=== PATIENT | male | born 1930 | race Caucasian/White ===

== ENCOUNTER → 2018-04-02 | Outpatient (CLI) | payer MEDICARE, BC ==
--- NOTE | 2018-04-03 08:50 | Diagnostic Imaging Report ---
PROCEDURE: X-RAY MODIFIED BARIUM SWALLOW COMPARISON: None. INDICATION: Pharyngeal dysphagia Radiation Details: Fluoroscopy time: 4.2 minutes Cumulative air kerma: 22.3 mGy DISCUSSION: Fluoroscopic examination was performed in conjunction with speech pathology during swallowing a variety of thin and thick liquid consistencies. Provided images demonstrate trace penetration and no evidence of aspiration. There is a posterior outpouching of the hypopharynx which contains contrast. Trace vallecular and pyriform sinus residue. CONCLUSION: Modified barium swallow demonstrating trace penetration and no evidence of aspiration. Posterior outpouching of the hypopharynx, most consistent with Zenker diverticulum. Please refer to the speech pathology report for further details. Signed by: Dr. Susannah Domínguez MD on 04/03/2018 8:47 AM
== END ==
LOC: DX 11:55
PROVIDERS: ATTEND Otolaryngology
DX: R13.13 Dysphagia, pharyngeal phase (principal); K22.5 Diverticulum of esophagus, acquired
CPT/HCPCS: 74230